=== PATIENT | female | born 1990 | race Caucasian/White ===

== ENCOUNTER → 2016-06-04 | Outpatient (CLI) | payer BC | LOC: COL.RAD 08:11 | DX: R10.32 Left lower quadrant pain (principal); R10.2 Pelvic and perineal pain ==

== ENCOUNTER 2017-03-25 09:20 | Emergency (ER) | payer OTHER ==
[~2017-03-25] VITALS: Ht 157.5 cm; Wt 50.0 kg
[2017-03-25 09:31] VITALS: TEMP 98.6
[2017-03-25 11:02] LABS: BASO % 0.5 % (0.0-2.0); EOS # 0.1 (0.0-0.7); GRAN # 5.4 (1.4-6.5); GRAN % 70.5 % (42.2-75.2); HEMATOCRIT 43.1 % (37.0-47.0); HEMOGLOBIN 14.8 g/dl (12.5-16.0); LYMPH # 1.7 (1.2-3.4); LYMPH % 22.2 % (20.0-51.0); MEAN CELL VOLUME 88 fl (80.0-100.0); MEAN CORPUSCULAR HEMOGLOBIN 30 pg (27.0-31.0); MEAN CORPUSCULAR HGB CONC 34 g/dl (33.0-37.0); MEAN PLATELET VOLUME 9.6 fl (7.4-10.4); MONO # 0.4 (0.1-0.6); MONO % 5.4 % (1.7-9.3); PLATELET COUNT 350 K/mm3 (130-400); REDCELL DISTRIBUTION WIDTH-CV 11.8 % (11.5-14.5)
[2017-03-25 11:10] LABS: ALANINE AMINOTRANSFERASE 25 U/L (9-52); ALBUMIN 4.7 gm/dL (3.5-5.0); ALKALINE PHOSPHATASE 68 U/L (50-136); ANION GAP 9 mmol/L (7-16); AST,SGOT 20 U/L (15-37); BILIRUBIN,TOTAL 1.1 mg/dL (0.0-1.0); BLOOD UREA NITROGEN 13 mg/dL (7-17); CALCIUM 9.4 mg/dL (8.4-10.2); CARBON DIOXIDE 26 mmol/L (22-30); CHLORIDE 105 mmol/L (98-107); CREATININE, serum 0.71 mg/dL (0.52-1.25); GLUCOSE 92 mg/dL (74-106); POTASSIUM 4.3 mmol/L (3.4-5.0); SODIUM 141 mmol/L (137-145)
[2017-03-25 11:23] LABS: TROPONIN-I < 0.012 ng/mL (0.000-0.034)
[2017-03-25] MEDS ORDERED: PREDNISONE20 MG PO (11:35)
[2017-03-25 12:13] VITALS: BP 117/91; PULSE 85
== END 2017-03-25 12:14 | disposition home or self-care (01) ==
LOC: COL.ER 09:20
PROVIDERS: Emergency Medicine
DX: R00.2 Palpitations (principal); F41.0 Panic disorder [episodic paroxysmal anxiety]
CPT/HCPCS: J7512

== ENCOUNTER 2018-04-04 07:23 | Emergency (ER) | payer OTHER ==
[~2018-04-04] VITALS: Ht 157.5 cm; Wt 48.2 kg
[~2018-04-04 07:23] MED LIST: PREDNISONE20 MG PO
[2018-04-04 07:27] VITALS: TEMP 97.8
[2018-04-04] MEDS ORDERED: PRIL40 PO (07:37)
[2018-04-04 08:55] VITALS: BP 122/78; PULSE 80
== END 2018-04-04 08:57 | disposition home or self-care (01) ==
LOC: COL.ER 07:23
DX: S83.92XA Sprain of unspecified site of left knee, initial encounter (principal); S50.02XA Contusion of left elbow, initial encounter; Z88.0 Allergy status to penicillin; W00.0XXA Fall on same level due to ice and snow, initial encounter; Y92.410 Unspecified street and highway as the place of occurrence of the external cause

== ENCOUNTER → 2018-11-11 | Outpatient (CLI) | payer OTHER ==
[~2018-11-11] MED LIST changes: +PRIL40 PO
== END ==
LOC: COL.RAD 14:15
DX: R79.82 Elevated C-reactive protein (CRP) (principal); R10.9 Unspecified abdominal pain
CPT/HCPCS: Q9967

== ENCOUNTER 2018-12-01 21:38 | Emergency (ER) | payer OTHER ==
[~2018-12-01] VITALS: Ht 157.5 cm; Wt 47.7 kg
[2018-12-01 21:49] VITALS: BP 142/82; TEMP 97.9
[2018-12-01] MEDS ORDERED: DOXYCYCLINE HY100 MG PO (22:06)
[2018-12-01 22:35] VITALS: PULSE 103
== END 2018-12-01 22:35 | disposition home or self-care (01) ==
LOC: COL.ER 21:38
DX: R21 Rash and other nonspecific skin eruption (principal)